=== PATIENT | male | born 1965 ===

== ENCOUNTER 2025-08-18 10:10 | Emergency (ER) | payer OTHER ==
[~2025-08-18] VITALS: Ht 177.8 cm; Wt 97.8 kg
--- NOTE | 2025-08-18 10:25 | ELECTROCARDIOGRAPH REPORT ---
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 Colin Conte Measurements Intervals [place] Rate: 72 P: 42 VA: 128 QRS: -36 QRSD: 100 T: 31 QT: 362 QTc: 397 Interpretive Statements Sinus rhythm Incomplete RBBB and LAFB RSR' in V1 or V2, right VCD or RVH Electronically Signed On 08-19-2025 11:18:[address] Colin Conte Please click the below link to view image of tracing.
--- NOTE | 2025-08-18 10:45 | Physician Documentation ---
History of Present Illness ~ Chief Complaint: Cold, cough & congestion Stated Complaint: CP Time Seen by MD: 14:30 Source: patient Mode of Arrival: POV Exam Limitations: no limitations HPI 60-year-old male complaining of increased shortness of breath and chest pain which is reproducible with coughing, and deep breathing. This initially started with chest congestion and cough progressing over the past few days. Medication Reconciliation Allergies: Coded Allergies: No Known Allergies (Unverified , 08/18/25) Review of Systems All Other Systems at this time: Reviewed and Negative ROS As stated above in the HPI, otherwise all systems are reviewed and negative. Respiratory: Reports: see HPI Physical Exam Vital Signs: RN Vital Signs have been reviewed: Yes, Temperature: 97.5, Source: Temporal, Heart Rate: 66, Respiratory Rate: 16, BP: 140/86, Pulse Oximetry: 98, Weight: 97.800 Oxygen Flow Rate: 0 Physical Exam General: Alert, no apparent distress. HEENT: moist mucous membranes. Neck: Full range of motion. Respiratory: No respiratory distress speaking in full sentences, patient does not appear to be in any distress at all, patient appears comfortable here in the triage room. Vital signs repeated intermittently through the patient's stay vital signs have remained appropriate, O2 saturations are appropriate no tachypnea noted. Chest: No accessory muscle use. Cardiovascular: Appears well perfused Neurologic: Oriented x4. Psychiatric: Normal mood and affect. Skin: Normal color, warm and dry. No edema, no ecchymosis. Progress Results/Orders Results/Orders Orders - JUANITA STILLP Lidocaine 2% Viscous (Xylocaine 2% Visco (08/18/25 14:30) Aluminum Hydrox Oral Susp (Amphojel Oral (08/18/25 14:30) Completed Orders - JUANITA STILL [employer] Diphenhydramine Oral Solution (Hydramine (08/18/25 14:30) Vital Signs 08/18/25 08/18/25 10:19 14:25 Temp 97.5 98.5 Pulse 66 69 Resp 16 16 B/P (MAP) 140/86 141/84 (103) Pulse Ox 98 97 O2 Flow Rate 0 0 Laboratory Tests Test 08/18/25 11:04 08/18/25 12:41 08/18/25 14:14 White Blood Count 7.7 Red Blood Count 5.12 Hemoglobin 15.6 Hematocrit 45.4 Mean Corpuscular Volume 88.7 Mean Corpuscular Hemoglobin 30.4 Mean Corpuscular Hemoglobin Concent 34.3 Red Cell Distribution Width 13.4 Platelet Count 196 Mean Platelet Volume 9.9 Neutrophils (%) (Auto) 69.3 Lymphocytes (%) (Auto) 19.3 L Monocytes (%) (Auto) 8.9 Eosinophils (%) (Auto) 1.4 Basophils (%) (Auto) 1.1 H Neutrophils # (Auto) 5.3 Lymphocytes # (Auto) 1.5 Monocytes # (Auto) 0.7 Eosinophils # (Auto) 0.1 Basophils # (Auto) 0.1 CBC Comment Sodium Level 140 Potassium Level 4.9 Chloride Level 104 Carbon Dioxide Level 29.0 Anion Gap 7 L Blood Urea Nitrogen 16 Creatinine 1.07 Estimated GFR/1.73 m2 71 BUN/Creatinine Ratio 15.0 Glucose Level 108 H Calcium Level 9.2 Troponin I High Sensitivity 8 10 9 Pro-B-Type Natriuretic Peptide 48 Albumin 4.0 Chemistry Comments Troponin I High Sens Percent Delta 25 10 Troponin I Hi Sens Absolute Change 2 -1 Medical Decision Making Additional information obtaine: other Findings Chief Complaint: Substernal chest pain x 12 hours History of Present Illness: 60-year-old male presenting with acute onset substernal chest pain that began overnight, rated 8/10 in severity. Patient repo rts recent upper respiratory illness with cough, cold, and congestion worsening over the past several weeks. Pain has shown mild improvement with GI cocktail administration in the emergency department. Risk Stratification: Patient underwent comprehensive evaluation for acute coronary syndrome per ACC Expert Consensus Decision Pathway. [1] Serial cardiac biomarkers obtained with first and second troponins within normal limits, third troponin pending at time of discharge. BNP 45, not suggestive of heart failure. 12-lead ECG demonstrates normal sinus rhythm without ischemic changes. Chest radiography negative for acute cardiopulmonary pathology. Assessment: Based on negative cardiac workup including serial troponins, nonischemic ECG, and low BNP, patient meets criteria for low-risk classification by clinical decision pathway. [1-2] The 30-day risk of major adverse cardiac events is estimated at 1% in this population. [1][3] Pulmonary embolism risk is low given absence of risk factors including no recent travel, no history of clotting disorders, and no lower extremity swelling or pain. [2] Physical examination without concerning findings, patient hemodynamically stable and comfortable. Differential Diagnosis: Given recent viral upper respiratory infection with persistent cough and improvement with GI cocktail, most likely etiologies include musculoskeletal chest pain related to coughing, viral pleurisy, or gastroesophageal reflux disease. [3] Response to GI cocktail suggests possible esophageal etiology, though this is not diagnostic. [4] Medical Decision Making: After comprehensive evaluation ruling out life- threatening causes of chest pain including acute coronary syndrome, pulmonary embolism, and aortic dissection, patient is appropriate for discharge with ou tpatient follow-up. Patient counseled on return precautions including worsening chest pain, shortness of breath, syncope, or other concerning symptoms warranting immediate return to emergency department. Disposition: Discharge home with instructions to follow up with primary care provider within 24-48 hours for further evaluation of persistent symptoms and consideration of additional diagnostic workup for noncardiac causes of chest pain as clinically indicated. [1] Patient verbalized understanding of discharge instructions and return precautions. Differential Dx:Considerations: Include: Allergic rhinitis, Influenza, Otitis media, Peritonsillar abscess, Pharyngitis-Diphtheria, Pharyngitis-Streptoccal, Pharyngitis-Viral, Pneumonia, Pnuemonitis, Sinusitis, URI, Other Departure Impression: Primary Impression: Chest wall pain Additional Impression: Esophagitis Condition: Stable Discharge Instructions: Chest Wall Pain, [id number], Cough, Adult Additional Instructions: EMERGENCY DEPARTMENT DISCHARGE INSTRUCTIONS Your Diagnosis: Chest pain - heart attack ruled out What We Found: You came to the emergency department with chest pain. We performed tests including blood work, chest X-ray, and heart monitoring (EKG) to check for a heart attack. All of these tests were normal. Your chest pain is most likely related to your recent cough and cold, possibly from muscle strain from coughing or irritation of the chest wall. Medications: You may take nlvp-nno-uetumip antacids (like Tums, Maalox, or Pepcid) for chest discomfort as needed Continue any regular medications as prescribed You may use lyqk-far-rxbezaj pain relievers like acetaminophen (Tylenol) or ibuprofen (Advil/Motrin) for chest wall discomfort Activity: You may resume normal daily activities as tolerated Avoid heavy lifting or strenuous exercise for the next 24-48 hours Rest as needed while recovering from your cold Follow-Up Care: You MUST follow up with your primary care doctor within 24-48 hours (tomorrow or the next day). Your doctor may want to do additional testing or evaluation of your symptoms. RETURN TO THE EMERGENCY DEPARTMENT IMMEDIATELY if you develop: Worsening chest pain or chest pain that does not improve with rest Chest pain with shortness of breath, sweating, nausea, or vomiting Chest pain that spreads to your jaw, neck, arms, or back Severe difficulty breathing Fainting or feeling like you might pass out Rapid or irregular heartbeat Any other symptoms that concern you Important: While your heart tests were normal today, it is still important to see your primary care doctor soon for follow-up evaluation and to address your ongoing symptoms. If you have questions or concerns, call your primary care doctor or return to the emergency department. Referrals: NO PRIMARY CARE PROVIDER (PCP) Education Educated: Patient Educated regarding: diagnosis, treatment, need for follow up Signature Scribe Signature: A Attestation: Scribed for Juanita Still by PORTIA Love . 08/18/25 15:10 FLORENTINO WHITTEN NP Aug 18, 2025 10:45 JUANITA STILL Aug 18, 2025 14:47
--- NOTE | 2025-08-18 11:10 | RADIOLOGY REPORT ---
DI CHEST,SINGLE VIEW, HISTORY: CP COMPARISON: None None TECHNICAL DATA: 1 view of the chest was obtained. FINDINGS: Lines and tubes: None Cardiomediastinal silhouette: normal Pulmonary vasculature: normal Lung expansion: normal Lung airspace: normal Lung interstitium: normal Pleura: normal Pneumothorax: no Bones: Unremarkable Other: no IMPRESSION: No acute intrathoracic abnormality.
[2025-08-18 11:14] LABS: MEAN PLATELET VOLUME 9.9 FL (7.4-10.4); RED CELL DISTRIBUTION WIDTH 13.4 % (11.5-14.5)
[2025-08-18 11:34] LABS: CREATININE 1.07 MG/DL (0.60-1.10); PRO BRAIN NATRIURETIC PEPTIDE 48 PG/ML (0-125); TOTAL CARBON DIOXIDE 29.0 MMOL/L (24-32); eCRCL 78 ML/MIN; eGFR 71 ML/MIN
[2025-08-18 14:25] VITALS: BP 141/84; PULSE 69; RESP 16; TEMP 98.5; O2SAT 97
[2025-08-18] MEDS ORDERED: aluminum hydroxide 1,920MG/30ml UD cup PO PRN (14:30)
[2025-08-18] MEDS: diphenhydrAMINE 25 MG/10 ML UD oral solution PO ONE (15:39)
[2025-08-18] MEDS: LIDOcaine 2% Viscous 15ml cup MM PRN (15:39)
[2025-08-18] MEDS: mag hydrox/Alum hydrox/simeth 30ml oral suspension PO ONE (15:40)
== END 2025-08-18 15:43 | disposition home or self-care (01) ==
LOC: ER 10:12
DX: K20.90 Esophagitis, unspecified without bleeding (principal); R07.89 Other chest pain; R05.9 Cough, unspecified
CPT/HCPCS: 36415; 71045; 80048; 83880; 84484; 85025; 93005; 99285; Q0163